=== PATIENT | female | born 2000 | race Asian ===

== ENCOUNTER 2019-03-05 20:27 | Emergency (ER) | payer SELFPAY ==
[~2019-03-05] VITALS: Ht 160 cm; Wt 63.0 kg
[2019-03-05] MEDS ORDERED: DEXAMETHASONE SOD PHOSPHATE 10 MG/ML VIAL ONE (20:39)
[2019-03-05] MEDS ORDERED: FAMOTIDINE (20 MG) 20 MG TABLET ONE (20:39)
[2019-03-05] MEDS ORDERED: diphenhydrAMINE HCL 50 MG/ML VIAL ONE (20:39)
[2019-03-05] MEDS ORDERED: DEXAMETHASONE SOD PHOSPHATE 10 MG/ML VIAL IM ONE (21:00)
[2019-03-05] MEDS ORDERED: FAMOTIDINE (20 MG) 20 MG TABLET PO ONE (21:00)
[2019-03-05] MEDS ORDERED: diphenhydrAMINE HCL 50 MG/ML VIAL IM ONE (21:00)
--- NOTE | 2019-03-05 21:07 | NUR ---
PT APPEARS TO BE RESTING COMFORTABLY WITH NO S/S OF DISTRESS. RESP ARE EVEN AND UNLABORED.
[2019-03-05] MEDS ORDERED: ONDANSETRON 4 MG TAB.RAPDIS SL ONE (21:30)
--- NOTE | 2019-03-05 21:30 | NUR ---
PT APPEARS TO BE RESTING COMFORTABLY WITH NO S/S OF DISTRESS NOTED.
[2019-03-05] MEDS ORDERED: ONDANSETRON 4 MG TAB.RAPDIS ONE (21:38)
--- NOTE | 2019-03-05 22:00 | NUR ---
Patient discharged to home in stable condition. Written and verbal after care instructions given. Patient verbalizes understanding of instruction AND RX. PT AMBULATED OUT WITH A STEADY GAIT. RESP WERE EVEN AND UNLABORED. PT VERIFIED WHERE TO GET THE PRESCRIPTION FILLED AND CHECKED WITH ADMITTING RE: ANY PAYMENT REQUIRED. VSS. NAD NOTED.
[2019-03-05 22:12] VITALS: BP 115/78
== END 2019-03-05 22:13 | disposition home or self-care (01) ==
LOC: ER 20:30
DX: T78.1XXA Other adverse food reactions, not elsewhere classified, initial encounter (principal); X58.XXXA Exposure to other specified factors, initial encounter
CPT/HCPCS: 96372 ×2; 99283; J1100; J1200; Q0162